=== PATIENT | male | born 1990 | race Caucasian/White ===

== ENCOUNTER 2016-08-12 11:47 | Emergency (ER) | payer OTHER ==
[~2016-08-12] VITALS: Ht 190.5 cm; Wt 107.0 kg
[2016-08-12 11:48] VITALS: BP 139/80; PULSE 92; RESP 20; TEMP 98; O2SAT 97
--- NOTE | 2016-08-12 12:44 | PD ---
HPI Chief Complaint: Abdominal Pain Time Seen by Provider: 12:42 Travel History International Travel<30 days: No Contact w/Intl Traveler<30days: No Traveled to known affect area: No History of Present Illness HPI Patient's 26-year-old male presenting to the [facility] for evaluation of abdominal pain. Patient states started 10 AM this morning, he reports the pain is just below his umbilicus, he reports it radiated down to his groin. He denies lifting any heavy objects. He states the pain is 6 out of 10, he denies any nausea, vomiting, shortness of breath, diarrhea. His last bowel movement was last night. He further denies any dysuria. [facility] Past Medical History Medical History: Denies Significant Hx Past Surgical History Surgical History: No Previous Surgery Social History Alcohol Use: No Tobacco Use: No Substance Use: No Allergies-Medications (Allergen,Severity, Reaction): Coded Allergies: No Known Allergies (Unverified , 08/12/16) Reported Meds & Prescriptions Reported Meds & Active Scripts Active Naproxen 500 Mg Tab 500 Mg PO BID 10 Days Review of Systems Except as stated in HPI: all other systems reviewed are Neg Gastrointestinal: Positive: Abdominal Pain Physical Exam Narrative GENERAL: Well-developed, well-nourished, alert male. Resting comfortably in no acute distress. SKIN: Focused skin assessment warm/dry. HEAD: Atraumatic. Normocephalic. EYES: Pupils equal and round. No scleral icterus. No injection or drainage. ENT: No nasal bleeding or discharge. Mucous membranes pink and moist. NECK: Trachea midline. No JVD. CARDIOVASCULAR: Regular rate and rhythm. No murmur appreciated. RESPIRATORY: No accessory muscle use. Clear to auscultation. Breath sounds equal bilaterally. GASTROINTESTINAL: Abdomen soft, mildly tender to palpation in left lower quadrant rebound, no guarding, nondistended. Hepatic and splenic margins not palpable. Positive bowel sounds MUSCULOSKELETAL: No obvious deformities. No clubbing. No cyanosis. No edema. NEUROLOGICAL: Awake and alert. No obvious cranial nerve deficits. Motor grossly within normal limits. Normal speech. PSYCHIATRIC: Appropriate mood and affect; insight and judgment normal. Data Data Last Documented VS Vital Signs Date Time Temp Pulse Resp B/P Pulse Ox O2 Delivery O2 Flow Rate FiO2 08/12/16 12:53 15 08/12/16 11:48 98.0 92 139/80 97 Room Air Orders Naproxen (Naprosyn) (08/12/16 13:00) MDM Medical Decision Making Medical Screen Exam Complete: Yes Emergency Medical Condition: Yes Interpretation(s) Vital Signs Date Time Temp Pulse Resp B/P Pulse Ox O2 Delivery O2 Flow Rate FiO2 08/12/16 11:48 98.0 92 20 139/80 97 Room Air Differential Diagnosis UTI versus diverticulitis versus muscle strain versus other Narrative Course Patient's 26-year-old male presenting for evaluation of abdominal pain that started approximately 3 hours ago. Physical examination is fairly benign, patient was mildly tender in the left lower quadrant. He has no other presenting complaints. Patient was also seen and evaluated by my attending physician, patient was educated and given strict return precautions. Included in the differential would be a small kidney stone, diverticulitis he was advised to return immediately for any new or worsening symptoms, he was educated on appendicitis as well. Patient verbalized understanding of these discharge instructions as well as need for close follow-up should his symptoms change or worsen. Patient is stable for discharge. Diagnosis Primary Impression: Abdominal pain Qualified Code: R10.9 - Abdominal pain, unspecified location Referrals: Primary Care Physician Patient Instructions: Abdominal Pain (ED), Appendicitis (DC), General Instructions Departure Forms: Tests/Procedures, Work Release Enter return to work date: Aug 13, 2016 Additional Instructions: Return to emergency department immediately for any new or worsening symptoms as discussed Take medications as directed Follow-up with your primary doctor Med/Other Pt SpecificInfo: Prescription(s) given Scripts Naproxen 500 Mg [id number] Mg PO BID 10 Days Ref 0 Prov:Lalita Dhillon 08/12/16 Disposition: 01 DISCHARGE HOME Condition: Stable Lalita Dhillon Aug 12, 2016 12:44
[2016-08-12] MEDS ORDERED: NAPR500T PO (12:59)
[2016-08-12] MEDS ORDERED: NAPROXEN 500 MG TAB PO ONE (13:00)
--- NOTE | 2016-08-12 13:59 | PD ---
Data Data Last Documented VS Vital Signs Date Time Temp Pulse Resp B/P Pulse Ox O2 Delivery O2 Flow Rate FiO2 08/12/16 12:53 15 08/12/16 11:48 98.0 92 139/80 97 Room Air Orders Naproxen (Naprosyn) (08/12/16 13:00) [facility] Supervised Visit with RIANNA: Yes Narrative Course The history, exam, and medical decision-making in the associated mid-level provider note were completed with my assistance. I reviewed and agree with the findings presented. I attest that I had a [id number] encounter with the patient on the same day, and personally performed and documented my assessment and findings in the medical record. *My assessment and Findings: The 26 year-old man who presents to the emergency room some abdominal pain. This started his lower abdomen, more on the left side, fairly abruptly. Is bad enough that he came to the emergency department. He's not had similar symptoms before. His a benign abdominal exam with minimal if any left lower tenderness. No nausea or vomiting. Normal bowel movements. No urinary symptoms. No groin swelling or edema. States pain radiates to the groin a little bit. I don 't think he has appendicitis. This may been a small stone that got stuck at the UVJ. He looks overall very well. Recommend supportive treatment with antibiotics. Discussed specifically risk for appendicitis, he agrees to return if he develops any right sided abdominal pain, worsening abdominal pain, fevers or chills, vomiting, bloating, or other symptoms. Diagnosis Primary Impression: Abdominal pain Qualified Code: R10.9 - Abdominal pain, unspecified location Referrals: Primary Care Physician Patient Instructions: General Instructions, Appendicitis (DC), Abdominal Pain ( ED) Departure Forms: Work Release, Enter return to work date: Tests/Procedures Additional Instruction: Return to emergency department immediately for any new or worsening symptoms as discussed Take medications as directed Follow-up with your primary doctor Scripts Naproxen 500 Mg [id number] Mg PO BID 10 Days Ref 0 Prov:Lalita Dhillon 08/12/16 Disposition: 01 DISCHARGE HOME Condition: Stable Barron Delgadillo MD Aug 12, 2016 13:59
== END 2016-08-12 13:30 | disposition home or self-care (01) ==
LOC: NEPD 11:47
DX: R10.9 Unspecified abdominal pain (principal)
CPT/HCPCS: 99283

== ENCOUNTER 2016-08-20 19:37 | Emergency (ER) | payer OTHER ==
[~2016-08-20] VITALS: Ht 180.3 cm; Wt 107.0 kg
[~2016-08-20 19:37] MED LIST: NAPR500T PO
[2016-08-20 19:38] VITALS: BP 136/74; PULSE 140; RESP 16; TEMP 100.4; O2SAT 98
[2016-08-20 22:25] VITALS: BP 134/87; PULSE 108; RESP 18; O2SAT 99
[2016-08-20] MEDS ORDERED: SODIUM CHLOR 0.9% 1000 ML INJ 1,000 ML IV ONE ×3 (22:25)
[2016-08-20] MEDS ORDERED: SODIUM CHLOR 0.9% 1000 ML INJ 300 ML IV ONE (22:25)
[2016-08-20] MEDS ORDERED: ACETAMINOPHEN 325 MG TAB PO ONE (22:30)
--- NOTE | 2016-08-20 22:41 | PD ---
HPI Chief Complaint: Abdominal Pain Time Seen by Provider: 22:25 Travel History International Travel<30 days: No Contact w/Intl Traveler<30days: No Traveled to known affect area: No History of Present Illness HPI 26-year-old male came to the emergency room with history of fever, loss of appetite and abdominal pain that has been on and off for past 1 week. Patient was in fact in the emergency room one week ago with the abdominal pain. Does at that time he did not have the fever. He was examined and was discharged home and asked to return if condition worsens. Patient says he has lost his appetite today and barely ate a few bites of a sandwich at 3 PM. No history of nausea vomiting. He points to the right lower quadrant of his abdomen as the location of the pain. Pain worse on standing and walking. Pain is little bit better when he lays down. Patient had a temperature of 100.4 and heart rate of 120s in the triage. He is awake and answering questions appropriately. He does not appear to be in severe distress. He is otherwise a healthy person. Patient says he has been taking Aleve for his pain. His last dose was at 7 PM today. [facility] Past Medical History Narrative Medical List of his past medical, surgical, social and family history is reviewed from the nursing note. Social History Alcohol Use: Yes (rarely ) Tobacco Use: No Substance Use: No Allergies-Medications (Allergen,Severity, Reaction): Coded Allergies: No Known Allergies (Unverified , 08/12/16) Comments No known drug allergies. Reported Meds & Prescriptions Reported Meds & Active Scripts Active No Active Prescriptions or Reported Medications Narrative Medication List of his home medications reviewed from the nursing note. Review of Systems Except as stated in HPI: all other systems reviewed are Neg Physical Exam Narrative GENERAL: Awake, alert, obese, moderate distress SKIN: Focused skin assessment warm/dry. HEAD: Atraumatic. Normocephalic. EYES: Pupils equal and round. No scleral icterus. No injection or drainage. ENT: No nasal bleeding or discharge. Mucous membranes pink and moist. NECK: Trachea midline. No JVD. CARDIOVASCULAR: Regular rate and rhythm. No murmur appreciated. RESPIRATORY: No accessory muscle use. Clear to auscultation. Breath sounds equal bilaterally. GASTROINTESTINAL: Abdomen soft, right lower quadrant tenderness on deep palpation, nondistended. Hepatic and splenic margins not palpable. MUSCULOSKELETAL: No obvious deformities. No clubbing. No cyanosis. No edema. NEUROLOGICAL: Awake and alert. No obvious cranial nerve deficits. Motor grossly within normal limits. Normal speech. PSYCHIATRIC: Appropriate mood and affect; insight and judgment normal. Data Data Last Documented VS Vital Signs Date Time Temp Pulse Resp B/P Pulse Ox O2 Delivery O2 Flow Rate FiO2 08/21/16 03:33 83 18 120/63 94 08/21/16 01:18 Room Air 08/20/16 19:38 100.4 Orders Complete Blood Count With Diff (08/20/16 22:25) Comprehensive Metabolic Panel (08/20/16 22:25) Lactic Acid Sepsis Protocol (08/20/16 22:25) Urinalysis - C+S If Indicated (08/20/16 22:25) Blood Culture (08/20/16 22:25) Chest, Single Ap (08/20/16 22:25) Blood Glucose (08/20/16 22:25) Ecg Monitoring (08/20/16 22:25) Iv Access Insert/Monitor (08/20/16 22:25) Oximetry (08/20/16 22:25) Oxygen Administration (08/20/16 22:25) Ct Abd/Pel W/O Iv Contrast (08/20/16 22:25) Sodium Chlor 0.9% 1000 Ml Inj (Ns 1000 M (08/20/16 22:25) Sodium Chlor 0.9% 1000 Ml Inj (Ns 1000 M (08/20/16 22:25) Sodium Chlor 0.9% 1000 Ml Inj (Ns 1000 M (08/20/16 22:25) Sodium Chlor 0.9% 1000 Ml Inj (Ns 1000 M (08/20/16 22:25) Acetaminophen (Tylenol) (08/20/16 22:30) Morphine Inj (Morphine Inj) (08/20/16 23:45) Morphine Inj (Morphine Inj) (08/21/16 00:16) Labs Laboratory Tests Test 08/20/16 08/21/16 22:30 01:20 White Blood Count 10.8 TH/MM3 Red Blood Count 5.39 MIL/MM3 Hemoglobin 16.0 GM/DL Hematocrit 45.8 % Mean Corpuscular Volume 85.0 FL Mean Corpuscular Hemoglobin 29.7 PG Mean Corpuscular Hemoglobin 34.9 % Concent Red Cell Distribution Width 13.1 % Platelet Count 200 TH/MM3 Mean Platelet Volume 7.3 FL Neutrophils (%) (Auto) 67.5 % Lymphocytes (%) (Auto) 18.8 % Monocytes (%) (Auto) 13.4 % Eosinophils (%) (Auto) 0.0 % Basophils (%) (Auto) 0.3 % Neutrophils # (Auto) 7.3 TH/MM3 Lymphocytes # (Auto) 2.0 TH/MM3 Monocytes # (Auto) 1.4 TH/MM3 Eosinophils # (Auto) 0.0 TH/MM3 Basophils # (Auto) 0.0 TH/MM3 CBC Comment DIFF FINAL Differential Comment Sodium Level 138 MEQ/L Potassium Level 3.8 MEQ/L Chloride Level 104 MEQ/L Carbon Dioxide Level 25.5 MEQ/L Anion Gap 9 MEQ/L Blood Urea Nitrogen 13 MG/DL Creatinine 1.26 MG/DL Estimat Glomerular Filtration 70 ML/MIN Rate Random Glucose 91 MG/DL Lactic Acid Level 1.0 mmol/L Calcium Level 8.3 MG/DL Total Bilirubin 0.8 MG/DL Aspartate Amino Transf 16 U/L (AST/SGOT) Alanine Aminotransferase 27 U/L (ALT/SGPT) Alkaline Phosphatase 61 U/L Total Protein 7.9 GM/DL Albumin 4.2 GM/DL Urine Color YELLOW Urine Turbidity CLEAR Urine pH 6.0 Urine Specific Enigma 1.015 Urine Protein NEG mg/dL Urine Glucose (UA) NEG mg/dL Urine Ketones 40 mg/dL Urine Occult Blood NEG Urine Nitrite NEG Urine Bilirubin NEG Urine Urobilinogen 2.0 MG/DL Urine Leukocyte Esterase NEG Urine RBC 1 /hpf Urine WBC 1 /hpf Urine Hyaline Casts 1 /lpf Urine Mucus FEW /lpf Microscopic Urinalysis Comment CATH-CULT NOT IND MDM Medical Decision Making Medical Screen Exam Complete: Yes Emergency Medical Condition: Yes Medical Record Reviewed: Yes Differential Diagnosis Appendicitis, mesenteric adenitis Narrative Course 11:19 PM CBC is back and appears to be within acceptable limits. Awaiting for the chemistry and CT scan. Patient is getting IV fluid bolus and Tylenol for the fever. 12:[address] scan is within normal limits. Awaiting for the UA. If that's negative patient will be discharged home. Procedures EKG Prior to Arrival: No Diagnosis Primary Impression: Abdominal pain Qualified Code: R10.31 - Right lower quadrant abdominal pain Additional Impressions: Viral illness Dehydration Referrals: Primary Care Physician Additional Instructions: Please return to the ER if the condition worsens or any other new concerns. Drink plenty of fluids to keep yourself hydrated. Follow-up with your primary care in couple days. Med/Other Pt SpecificInfo: No Change to Meds Scripts No Active Prescriptions or Reported Meds Disposition: 01 DISCHARGE HOME Condition: Stable Deyanira Davila MD Aug 20, 2016 22:41
[2016-08-20 22:52] LABS: AUTOMATED NEUTROPHIL # 7.3 TH/MM3 (1.8-7.7); BASOPHIL % 0.3 % (0.0-2.0); HEMATOCRIT 45.8 % (39.0-51.0); HEMO FLAGS DIFF FINAL; LYMPH % 18.8 % (9.0-44.0); MEAN CORPUSCULAR HEMOGLOBIN 29.7 PG (27.0-34.0); MEAN CORPUSCULAR HGB CONC 34.9 % (32.0-36.0); MONO % 13.4 % (0.0-8.0); NEUT % 67.5 % (16.0-70.0); PLATELET COUNT 200 TH/MM3 (150-450); RED BLOOD COUNT 5.39 MIL/MM3 (4.50-5.90); RED CELL DISTRIBUTION WIDTH 13.1 % (11.6-17.2); WHITE BLOOD COUNT 10.8 TH/MM3 (4.0-11.0)
--- NOTE | 2016-08-20 23:10 | RADRPT ---
EXAM DATE/TIME: 08/20/2016 22:25 [facility] COMPARISON: No previous studies available for comparison. INDICATIONS : Fever. MEDICAL HISTORY : None. SURGICAL HISTORY : None. ENCOUNTER: Initial ACUITY: 2 days PAIN SCORE: 0/10 LOCATION: Bilateral chest FINDINGS: A single view of the chest demonstrates the lungs to be symmetrically aerated without evidence of mas s, infiltrate or effusion. The cardiomediastinal contours are unremarkable. Osseous structures are intact. CONCLUSION: Normal examination. Barron Aldana MD on August 20, 2016 at 23:08 Board Certified Radiologist. This report was verified electronically.
[2016-08-20 23:12] LABS: ANION GAP 9 MEQ/L (5-15); AST (GOT) 16 U/L (15-37); BICARBONATE 25.5 MEQ/L (21.0-32.0); BLOOD UREA NITROGEN 13 MG/DL (7-18); CHLORIDE 104 MEQ/L (98-107); GLOMERULAR FILTRATION RATE 70 ML/MIN (>89); POTASSIUM 3.8 MEQ/L (3.5-5.1); SODIUM (NA) 138 MEQ/L (136-145)
[2016-08-20 23:13] LABS: ALT (GPT) 27 U/L (12-78)
[2016-08-20 23:15] LABS: ALKALINE PHOSPHATASE 61 U/L (45-117); TOTAL BILIRUBIN ADULT 0.8 MG/DL (0.2-1.0)
[2016-08-20] MEDS ORDERED: MORPHINE SULFATE 4 MG/ML INJ IV PUSH ONE (23:45)
--- NOTE | 2016-08-21 00:15 | RADRPT ---
EXAM DATE/TIME: 08/20/2016 23:53 [facility] COMPARISON: No previous studies available for comparison. INDICATIONS : Periumbilical abdominal pain and nausea. ORAL CONTRAST: No oral contrast ingested. RADIATION DOSE: 15.55 CTDIvol (mGy) MEDICAL HISTORY : None SURGICAL HISTORY : None. ENCOUNTER: Initial ACUITY: 1 week PAIN SCALE: 6/10 LOCATION: abdomen TECHNIQUE: Volumetric scanning of the abdomen and pelvis was performed. Using automated exposure control and ad justment of the mA and/or kV according to patient size, radiation dose was kept as low as reasonably achievable to obtain optimal diagnostic quality images. DICOM format image data is available electro nically for review and comparison. FINDINGS: LOWER LUNGS: The visualized lower lungs are clear. LIVER: Homogeneous density without lesion. There is no dilation of the biliary tree. No calcified gallston es. SPLEEN: Normal size without lesion. PANCREAS: Within normal limits. KIDNEYS: Normal in size and shape. There is no mass, stone, or hydronephrosis. ADRENAL GLANDS: Within normal limits. VASCULAR: There is no aortic aneurysm. BOWEL/MESENTERY: The stomach, small bowel, and colon demonstrate no acute abnormality. There is no free intraperitone al air or fluid. ABDOMINAL WALL: Within normal limits. RETROPERITONEUM: There is no lymphadenopathy. BLADDER: No wall thickening or mass. REPRODUCTIVE: Within normal limits. INGUINAL: There is no lymphadenopathy or hernia. MUSCULOSKELETAL: Within normal limits for patient age. CONCLUSION: Normal examination. Barron Aldana MD on August 21, 2016 at 0:13 Board Certified Radiologist. This report was verified electronically.
[2016-08-21] MEDS ORDERED: MORPHINE SULFATE 8 MG/ML INJ ONE (00:16)
[2016-08-21 01:18] VITALS: BP 131/69; PULSE 100; RESP 18; O2SAT 97
[2016-08-21 01:40] LABS: BLOOD, URINE NEG (NEG); COMMENT (UR) CATH-CULT NOT IND; CULTURE IF INDICATED CATH CULTURE NOT IND; GLUCOSE,URINE NEG (NEG); HYALINE CAST, URINE 1 /lpf (RARE); KETONE, URINE 40 mg/dL (NEG); MUCUS URINE FEW /lpf (OCC); NITRITE,URINE NEG (NEG); URINE COLOR YELLOW (YELLW/STRAW)
[2016-08-21 03:33] VITALS: BP 120/63
== END 2016-08-21 03:45 | disposition home or self-care (01) ==
LOC: NEPC 19:37
DX: R10.31 Right lower quadrant pain (principal); E86.0 Dehydration; B34.9 Viral infection, unspecified
CPT/HCPCS: 71010; 74176; 80053; 81001; 83605; 85025; 87040; 96374; 99285; J2270; J7030